=== PATIENT | male | born 2000 | race Caucasian/White ===

== ENCOUNTER 2024-07-25 15:50 | Emergency (ER) | payer SELFPAY ==
[2024-07-25 15:58] VITALS: BP 132/76; PULSE 72; TEMP 36.8; BMI 21.3
--- NOTE | 2024-07-25 16:21 | ED_ITS ---
HPI HPI - General Adult General Chief complaint: Urogenital-Male Stated complaint: SWOLLEN AND PAIN IN TESTICLE Time Seen by Provider: 07/25/24 16:05 Source: patient Mode of arrival: walk-in Limitations: no limitations History of Present Illness HPI narrative: 24-year-old male presents here with chief complaint of left testicular pain and swelling. He states he was [place] and states he believes he had shaved himself from all the walking he was doing. He placed baby powder on the scrotal area. Woke this morning with burning sensation and swelling to the left testicle. He denies any urinary symptoms. Denies any penile drainage. Denies concern for STD. He has not had any history of scrotal issues in the past. Related Data Previous Rx's ?Medication ?Instructions ?Recorded cephalexin 500 mg capsule 500 mg PO BID 10 days #20 ca ps 07/25/24 Allergies Allergy/AdvReac Type Severity Reaction Status Date / Time No Known Drug Allergies Allergy Verified 07/25/24 15:58 Opioid HPI Opioid Management Most Recent Opioid Data: Last Pain Scale 6 Today, 16:08 PFSH PFSH Social History Little interest or pleasure in doing things: not at all Feeling down, depressed, or hopeless: not at all Exam Narrative Exam Narrative: All Systems are negative except as noted/marked.All systems reviewed and otherwise negative Nurses note and vital signs reviewed and patient is not hypoxic. General: The patient appears well and in no apparent distress. Patient is resting comfortably on cart. Skin: Warm, dry, no pallor noted. There is no rash noted. Head: Normocephalic, atraumatic Eye: Normal conjunctiva, no drainage, EOMI. PERRL Ears, Nose, Mouth, and Throat: oral mucosa is moist. Nares patent. Mouth without vesicles. Ear canals patent. Tm's without Erythema Cardiovascular: Regular Rate and Rhythm gu: There is minimal swelling mild erythema of the skin noted no rash, no penile drainage noted. GI: Normal bowel sounds, no tenderness to palpation, no masses appreciated. No rebound, guarding, or rigidity noted. Musculoskeletal: The patient has no evidence of calf tenderness, no pitting edema, symmetrical pulses noted bilaterally Neurological: A&O x4, normal speech Psychiatric: Cooperative Constitutional Vital Signs, click to edit/add: Last Vital Signs Temp 98.2 F 07/25/24 15:58 Pulse 72 07/25/24 15:58 Resp 16 07/25/24 15:58 BP 132/76 07/25/24 15:58 Course Vital Signs Vital signs: Vital Signs Temperature 98.2 F 07/25/24 15:58 Pulse Rate 72 07/25/24 15:58 Respiratory Rate 16 07/25/24 15:58 Blood Pressure 132/76 07/25/24 15:58 Temperature 98.2 F 07/25/24 15:58 Pulse Rate 72 07/25/24 15:58 Respiratory Rate 16 07/25/24 15:58 Blood Pressure 132/76 07/25/24 15:58 Medical Decision Making MDM Narrative Medical decision making narrative: 24-year-old male presents here with chief complaint of left testicular pain and swelling. He states he was [place] yesterday [place] and states he believes he had shaved himself from all the walking he was doing. He placed baby powder on the scrotal area. Woke this morning with burning sensation and swelling to the left testicle. He denies any urinary symptoms. Denies any penile drainage. Denies concern for STD. He has not had any history of scrotal issues in the past. Presented here with a chief complaint of left testicular swelling and skin irritation. He did use baby powder on his scrotum after walking in the [place] yesterday and felt chafing. Minimal redness erythema is noted. Patient's urine is unremarkable. Ultrasound reading shows varicocele nothing acute. Patient be discharged home with prescription of Keflex for folliculitis follow-up with primary care physician reasons to return to the emergency room were discussed patient understands. He is discharged home Differential Diagnosis Differential Diagnosis: testicular pain, hydrocele, varicocele Medical Records Medical records reviewed: Yes I reviewed the patient's medical records Lab Data Lab results reviewed: Yes I reviewed the patient's lab results Labs: Lab Results 07/25/24 Range/Units 16:32 Urine Color Yellow (YELLOW) Urine Clarity Clear (CLEAR) Urine pH 6.0 (5.0-9.0) Ur Specific [place] 1.025 (1.005-1.025) Urine Protein Negative (NEG/TRACE) mg/dL Urine Glucose (UA) Negative (NEGATIVE) mg/dL Urine Ketones Trace A (NEGATIVE) mg/dL Urine Occult Blood Negative (NEGATIVE) Urine Nitrite Negative (NEGATIVE) Urine Bilirubin Negative (NEGATIVE) Urine Urobilinogen 0.2 (0.2-1.0) EU/dL Ur Leukocyte Esterase Trace A (NEGATIVE) Urine RBC 2-5 A (0-2) #/HPF Urine WBC 0-2 A (NONE SEEN) #/HPF Ur Squamous Epith Cells Few A (NONE/RARE) #/LPF Urine Crystals None seen (None Seen) #/HPF Urine Bacteria Trace A (NONE SEEN) #/HPF Urine Casts None seen (NONE SEEN) #/LPF Urine Mucus Moderate A (NONE SEEN) Ur Culture Indicated? No Discharge Plan Discharge Chief Complaint: Urogenital-Male Clinical Impression: Varicocele, Folliculitis, Left varicocele Patient Disposition: Home, Self-Care Time of Disposition Decision: 16:58 Condition: Good Prescriptions / Home Meds: New cephalexin 500 mg capsule 500 mg PO BID 10 Days Qty: 20 0RF Print Language: Telugu Instructions: Folliculitis (ED), Scrotal Pain (ED) Referrals: Physician,Non-Staff, MD [Primary Care Provider] - 1 week
[2024-07-25 16:38] LABS: Bilirubin Urine NEGATIVE (NEGATIVE); Blood Urine NEGATIVE (NEGATIVE); Clarity Urine CLEAR (CLEAR); Color Urine YELLOW (YELLOW); Glucose Urine UA NEGATIVE (NEGATIVE); Ketones Urine TRACE mg/dL (NEGATIVE); Leukocyte Esterase Urine TRACE (NEGATIVE); Nitrite Urine NEGATIVE (NEGATIVE); Protein Urine NEGATIVE (NEG/TRACE); Specific Gravity Urine 1.025 (1.005-1.025); Urobilinogen Urine 0.2 EU/dL (0.2-1.0)
[2024-07-25 16:45] LABS: Bacteria Urine TRACE #/HPF (NONE SEEN); Cast Seen? NONE SEEN #/LPF (NONE SEEN); Crystals Seen? None Seen #/HPF (None Seen); Mucus Urine MODERATE (NONE SEEN); Squamous Epithelial Cell Urine FEW #/LPF (NONE/RARE); Urine Culture Indicated NO; WBC Urine 0-2 #/HPF (NONE SEEN)
== END 2024-07-25 17:09 | disposition home or self-care (01) ==
PROVIDERS: Physician Assistant; Emergency Provider Emergency Medicine
DX: I86.1 Scrotal varices (principal); L73.9 Follicular disorder, unspecified
CPT/HCPCS: 76870; 81001; 99284